=== PATIENT | male | born 2000 | race Caucasian/White ===

== ENCOUNTER 2020-09-19 17:55 | Emergency (ER) | payer OTHER ==
[~2020-09-19] VITALS: Ht 188 cm; Wt 113.4 kg
== END 2020-09-19 19:38 | disposition home or self-care (01) ==
LOC: ER 17:55
DX: S61.411A Laceration without foreign body of right hand, initial encounter (principal); Z23 Encounter for immunization; W27.0XXA Contact with workbench tool, initial encounter; Y93.89 Activity, other specified
CPT/HCPCS: 12002; 90471; 90714; 99282-25

== ENCOUNTER 2021-07-06 02:19 | Emergency (ER) | payer OTHER ==
[~2021-07-06] VITALS: Ht 193 cm; Wt 108.9 kg
== END 2021-07-06 03:50 | disposition left against medical advice (07) ==
LOC: ER 02:19
DX: Z53.21 Procedure and treatment not carried out due to patient leaving prior to being seen by health care provider (principal)